=== PATIENT | male | born 1975 | race Caucasian/White ===

== ENCOUNTER → 2021-11-26 12:23 | Outpatient (CLI) | payer OTHER, SELFPAY ==
--- NOTE | 2021-11-26 15:10 | DI.MRI.S_ITS ---
PROCEDURE: MR HAND LT WO CON INDICATIONS: SPRAIN OF METACARPOPHALANGEAL JOINT OF LEFT THUMB TECHNIQUE: Noncontrast oblique coronal T1 spin echo and T2 fast spin echo with fat saturation, axial and sagittal T2 fast spin echo with fat saturation, through the thumb. COMPARISON: [facility] [place], CR, XR FINGER(S) LEFT, 11/17/2021, 13:34. FINDINGS: Image quality: Excellent. Bones: Patchy T2 hyperintense signal is seen in the distal, ulna aspect 1st metacarpal, compatible with contusion. Redemonstrated avulsion injury of the radial aspect 1st proximal phalanx base. Small 1st metacarpophalangeal joint effusion. First carpometacarpal joint: On sagittal images, the dorsal radial ligament and posterior oblique ligament appear intact. The intermetacarpal ligament between the 1st and 2nd metacarpal bases also appears intact. On the volar aspect, the deep and superficial layers of the anterior oblique ligament appear intact. First metacarpophalangeal joint: Disruption of the radial collateral ligament. The overlying fibers of the abductor pollicis brevis tendon appear maintained. The components of the ulnar collateral ligaments appear intact, along with overlying fibers of the adductor pollicis muscle. The aponeurosis of the adductor pollicis muscle also appears normal. The volar plate appears intact on sagittal images, situated between the radial and ulnar sesamoids. Thenar muscles: No significant intramuscular edema or evidence of atrophy. Flexor pollicis longus tendon: Tendon fibers appear intact, coursing between the thenar eminence muscles and the adductor pollicis muscle, and inserting on the volar base of the distal phalanx. No joy injury is appreciated. Extensor tendons: The extensor pollicis brevis tendon appears intact, coursing radial to the extensor pollicis longus tendon and inserting on the dorsal base of the proximal phalanx. The extensor pollicis longus tendon appears intact as it inserts on the dorsal base of the distal phalanx. The sagittal band at the level of the first MCP joint appears intact. The abductor pollicis longus tendon slips appear intact at the radial aspect of the proximal phalanx, proximal to the abductor pollicis brevis tendon insertion. Miscellaneous: No ganglion cysts. IMPRESSION: Redemonstrated avulsion injury of the radial aspect 1st proximal phalanx base with disruption of the radial collateral ligament. Dictated by: Arturo Calderon M.D. on 11/26/2021 at 17:11 Approved by: Arturo Calderon M.D. on 11/26/2021 at 17:28
== END ==
PROVIDERS: Referring Provider Orthopaedic Surgery; Visit Provider Orthopaedic Surgery
DX: S63.642A Sprain of metacarpophalangeal joint of left thumb, initial encounter (principal); S62.512A Displaced fracture of proximal phalanx of left thumb, initial encounter for closed fracture
CPT/HCPCS: 73218

== ENCOUNTER 2022-08-27 08:12 | Day surgery (SDC) | payer OTHER, SELFPAY ==
[2022-08-25 07:22] VITALS: BMI 29.0
[2022-08-27] VITALS (7 sets, daily range): BP systolic 110–149; BP diastolic 71–90; PULSE 63–87; RESP 14–18; TEMP 36.2–36.6; O2SAT 91–95; BMI 29.9
--- NOTE | 2022-08-27 07:33 | P.HP_ITS ---
History of Present Illness History of Present Illness Date Patient Seen: 08/27/22 Time Patient Seen: 07:33 Chief complaint: LEFT THUMB Narrative: 46-year-old gentleman with a history of an injury to his left thumb resulting in pain and swelling to the radial aspect as well as instability to the MCP joint. Exam Narrative Exam Narrative: Patient has instability to the left MCP joint. Laxity to the radial collateral ligaments no sign of any injury to the ulnar collateral ligament. Normal flexion and extension. No sign of any volar plate injury. Normal range of motion of the basal joint. 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 Due to this injury patient is interested in surgery to reconstruct his radial collateral ligament. All of his questions and concerns were answered to his full satisfaction. The risk, benefits, alternatives, possible complications, operative course, and postop outcomes were discussed. Complications including but not limiting to bleeding, infection, fracture, nerve injury, continued pain postoperatively or instability postoperatively were discussed in detail. Medical complications including but not limited to deep venous thrombosis event, anesthesia complica tions with excessive bleeding, vascular events or cardiac events and other possible complications were discussed in detail. Need for postoperative rehabilitation and anticipated hospital stay and clinical course were discussed in detail. Patient acknowledges understanding and elects to proceed with surgery. Time Spent With Patient Critical Care time: I spent a total of [] minutes of critical care time on this patient's care today; this time is exclusive of procedural time.
--- NOTE | 2022-08-27 07:34 | PM.PREOP ---
Pre-operative Note Interval Note History & Physical reviewed/Exam performed by Physician: Yes Changes to H&P: No
[2022-08-27] MEDS: LACTATED RINGERS 1,000 ML 42 ML IV (08:53)
[2022-08-27 09:19] LABS: COVID19 -Nasal RAPID Negative (Negative)
[2022-08-27] MEDS: CEFAZOLIN 2 GM/100 ML PREMIX 100 ML IV (09:45)
--- NOTE | 2022-08-27 10:06 | SUR.OPER ---
Supine on padded OR bed, head on pillow, arms secured on padded arm boards at <90 degrees abduction, legs uncrossed, safety belt at thigh, tape over blanket over lower legs. Gel pad under heels.
[2022-08-27] MEDS: BUPIVACAINE 0.5% W/ EPI (PF) 30 ML VIAL INJ (10:29)
--- NOTE | 2022-08-27 10:52 | PM.OP.1 ---
Operative Date/Time/Diagnoses Date of procedure: 08/27/22 Time of procedure: 10:00 Pre-op diagnosis: Left thumb radial collateral ligament rupture Post-op diagnosis: same Procedure & Clinicians Procedure: Left thumb radial collateral ligament reconstruction Same procedure as scheduled: Yes Indications: Rupture of the radial collateral ligament MCP joint left thumb Surgeon: Keith Keyes Click Yes if Unassisted: Yes Anesthesia Type: General Operative Notes Findings: Rupture of the radial collateral ligament at the proximal phalanx. Signs of a previous avulsion fragment coming off the proximal phalanx. No sign of any arthritic changes. Applied: implant(s) (Two Arthrex tenodesis anchors) Estimated Blood Loss (mL): 0 Tourniquet time (min): 37 Procedure in detail: On date of Service, patient was met in the holding area where his operative site was signed and witnessed by the OR staff. The surgery is once again discussed with the patient in remaining questions or concerns he had were answered to his full satisfaction. Patient was taken back to the operating theater and placed on the operating table in a supine position. Great care was taken to ensure that all bony prominences were appropriately padded. Well-padded tourniquet was placed up along the upper extremity and a time-out was performed verifying patient's name, procedure and operative site. The upper extremity was prepped and draped in the normal sterile fashion. And Esmarch was used to exsanguinate the limb and the tourniquet was turned up to 250 mmHg. Curvilinear incision was made centered over the radial r aspect of the MCP joint. A 15 blade was used incise the skin and fascial tissue. Bipolar electrocautery was used to achieve hemostasis. Deep knife was then used to continued sharp dissection and the aponeurosis was split giving us a good visualization of the radial collateral ligament. Rupture at the distal insertion but still healthy tendon material. The radial collateral ligament was repaired back to the proximal phalanx. Two drill holes were made 1 in the proximal phalanx 1 in the metacarpal. Suture material was tenodesed 1st in the metacarpal brought across the joint and then tenodesed in the proximal phalanx under tension. This help secure the radial collateral ligament tissue onto the proximal phalanx as well as provide additional support to the ligament. This got rid of the excess laxity to the MCP joint and help stabilize the joint. The wound was then copiously irrigated. Aponeurosis was closed in the rest of the wound was closed in a layered fashion. The hand was cleaned, dried, and dressed and patient was placed into a splint. Complications: none Post-operative Condition: stable Disposition: PACU Plan for aftercare: Patient will be mobilized in the splint for 2 weeks. After 2 weeks patient will come out of the splint and hand therapy can make him a thumb based splint.
[2022-08-27] MEDS: KETOROLAC 30 MG/ML VIAL IV (10:59)
== END 2022-08-27 12:05 | disposition home or self-care (01) ==
PROVIDERS: PCP Student in an Organized Health Care Education/Training Program; Referring Provider Orthopaedic Surgery; Visit Provider Orthopaedic Surgery
PROC: (CPT 26540; principal; 2022-08-27 09:45)
DX: M25.342 Other instability, left hand (principal); S63.642A Sprain of metacarpophalangeal joint of left thumb, initial encounter; Z20.822 Contact with and (suspected) exposure to COVID-19; K21.9 Gastro-esophageal reflux disease without esophagitis
CPT/HCPCS: 26540; 87635; C9803; J0690; J1885; J2250; J2704; J3010

== ENCOUNTER 2025-05-09 12:45 | Day surgery (SDC) | payer OTHER, SELFPAY ==
[2025-05-09 13:05] VITALS: BP 123/84; PULSE 62; RESP 15; TEMP 36.3; O2SAT 94
[2025-05-09] MEDS: LACTATED RINGERS 1,000 ML 42 ML IV (13:07)
--- NOTE | 2025-05-09 13:26 | PM.HP.IH.1 ---
History of Present Illness History of Present Illness Date Patient Seen: 05/09/25 Chief complaint: Screening Colonoscopy Narrative: First screening colonoscopy PFSH Social History household members: none Smoking Status: Never smoker alcohol intake: current Meds Home Medications and Allergies Home Medications ?Medication ?Instructions ?Recorded ?Confirmed ?Type hydroxyzine pamoate 25 mg capsule 25 mg PO TID-QID PRN spasms #60 08/27/22 Rx (Vistaril) caps oxycodone-acetaminophen 5 mg-325 2 tab PO Q4-6H PRN pain #60 tabs 08/27/22 Rx mg tablet (Percocet) pantoprazole 40 mg tablet,delayed mg PO 08/27/22 History release (Protonix) ropinirole 1 mg 08/27/22 History peg 3350-electrolytes 236 240 ml PO Q10M #4,000 mL 04/23/25 Rx gram-22.74 gram-6.74 gram-5.86 gram solution (Golytely) Allergies Allergy/AdvReac Type Severity Reaction Status Date / Time No Known Drug Allergies Allergy Verified 08/27/22 08:38 Exam Vital Signs (past 8 hours): - 05/09/25 13:05 Temperature 97.3 F L Pulse Rate 62 Respiratory Rate 15 Blood Pressure 123/84 Pulse Oximetry 94 Oxygen Delivery Method Room Air Oxygen Delivery Method Room Air Assessment & Plan Assessment & Plan narrative: For screening colonoscopy. Risks, benefits, alternatives have been explained. Time-Based Coding :: [TOTAL MINUTES] spent with patient and on the chart (including review of chart, obtaining history, exam, reviewing outside data, placing orders, documenting exam and treatment plan, and counseling patient) on [DATE]. 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
--- NOTE | 2025-05-09 13:27 | PM.OP.COLON ---
Operative Date/Time/Diagnoses Date of procedure: 05/09/25 Time of procedure: 13:51 Pre-op diagnosis: See indication and findings Post-op diagnosis: same Procedure & Clinicians Study performed: Colonoscopy Same procedure(s) as scheduled: Yes Indications: 1st screening Surgeon: Rachel Iqbal Anesthesia Type: Other Procedure Notes Procedure in detail: After informed consent was obtained the patient was placed in left lateral decubitus position. The video colonoscope was placed in the rectum slowly advanced cecum. Preparation was good. On slow withdrawal mucosa was carefully examined. The scope was removed. The patient tolerated procedure well. Blood loss none Complications none Sedation mac Findings 1. Normal colonoscopy to cecum Patient should have follow-up colonoscopy in 10 years
[2025-05-09 13:55] VITALS: BP 104/75; PULSE 64; RESP 16; TEMP 36.3; O2SAT 97
[2025-05-09 14:00] VITALS: BP 118/84; PULSE 65; RESP 19; O2SAT 94
[2025-05-09 14:09] VITALS: BP 126/82; PULSE 64; RESP 14; TEMP 36.9; O2SAT 97
== END 2025-05-09 14:20 | disposition home or self-care (01) ==
PROVIDERS: PCP Student in an Organized Health Care Education/Training Program; Referring Provider Internal Medicine Gastroenterology; Visit Provider Internal Medicine Gastroenterology
PROC: 0DJD8ZZ Inspection of Lower Intestinal Tract, Via Natural or Artificial Opening Endoscopic (ICD-10-PCS; CPT 45378; principal; 2025-05-09 14:00)
DX: Z12.11 Encounter for screening for malignant neoplasm of colon (principal); E66.9 Obesity, unspecified; G47.33 Obstructive sleep apnea (adult) (pediatric); F41.9 Anxiety disorder, unspecified; F32.A Depression, unspecified; K21.9 Gastro-esophageal reflux disease without esophagitis
CPT/HCPCS: G0121; J2704